=== PATIENT | male | born 2000 | race Caucasian/White ===

== ENCOUNTER 2024-03-14 10:40 | Emergency (ER) | payer SELFPAY ==
[2024-03-14 10:45] VITALS: BP 137/86
--- NOTE | 2024-03-14 11:05 | ED.GENMED ---
History of Present Illness
General
Chief Complaint: Male Genito-Urinary Symptoms
Source: patient
Exam Limitations: none
Time Seen by Provider: 03/14/24 10:52
Nursing documentation reviewed up to this point in time: agreed with
History of Present Illness
History of Present Illness:
ptis a 24 y/o M with no sig pmh
started 2 days ago having mild intermittent pain in the right upper groin near the superior scrotum
which has come and gone
says it was brief on the first day but he had a few episodes yesterday that were subtle and mild and he mostly felt well
and then this am wok up at 6 am to the pain
no scrotal swelling, rashes, lumps, penile discharge,urinay symptoms
no meds taken
no rectal pain
no h/o kidney stone
Past History
Past History
ED Past Medical History: Seizures and Psychiatric (ADHD)
ED Past Surgical History: None
Social History
Tobacco: Non-smoker
Review of Systems
Review of Systems
Allergies reviewed?: Yes
All Other Systems: Not applicable
Phy Exam
Physical Exam
Physical Exam:
GENERAL: Alert , in no apparent distress
EYE: pupils equal and reactive
NECK: Supple
ENT: o/p clr, mmm.
CARDIAC: Regular rate and rhythm .
LUNGS: Clear breath sounds bilaterally, no acute respiratory distress, no wheezes/rales/rhonchi
ABDOMEN: Soft, without focal tenderness, no r/g, no cvat, normal bowel sounds
: Right testicle lies lower than the left which is apparently his baseline, there is no edema of his scrotum, there is no epididymal tenderness, cremasterics normal on by both sides, right inguinal region nontender, no erythema of the scrotum, no
penile lesions,
NEUROLOGICAL: Alert and oriented, no focal neuro deficits
SKIN: Warm and dry, skin intact.
PSYCH: Normal and appropriate interaction.
Course
Orders/Labs/Results
Orders:
Orders
03/14/24 11:02
Urinalysis Reflex To Culture Urgent
Date Specimen was Collected: 03/14/24
Time Specimen was Collected: 10:54
Chlamydia/GC by PCR Urgent
JAELYN Source: Urine
Specimen Description:
Source:: URINE
Date Specimen was Collected: 03/14/24
Time Specimen was Collected: 10:54
03/14/24 11:09
Scrotum US [US Scrotum] Urgent
Comment:
Reason For Exam: right test pain; eval hernia,epidydmitis, torsion
03/14/24 12:21
CT Abd/pel Without Iv Or Oral Urgent
Comment:
Reason For Exam: eval right kidney stone; r testicular pain
Vital Signs
Initial and Last Documented VS:
Initial Vital Signs
Temp Pulse BP Pulse Ox
97.7 F 85 137/86 99
03/14/24 10:45 03/14/24 10:45 03/14/24 10:45 03/14/24 10:45
Last Documented Vital Signs
Temp Pulse Resp BP Pulse Ox
97.7 F 65 18 137/73 99
03/14/24 10:45 03/14/24 14:18 03/14/24 14:18 03/14/24 14:18 03/14/24 10:45
MDM/Problems Addressed
Differential Diagnosis Includes:
tsticular torsion, epididymitis, hernia, less likely kidney stone, less likely HILARIA, ifection
MDM/Problems Addressed:
24 y/o M
no pmh
intermittent pain in the R superior scrotum area that comes and goes
no trauma
no skin changes
no urinary changes
no sweling
on exam nontender, no masses
right testicle lie is lower than left which apparently is basline
no hrnia appreciated
no HILARIA
wll eval with urine and US
US neg
ct scan ne gfo rstone
scrotal support, tylenol; if wosre f/u with urology
*Critical Care Note
Total Time (30-74mins, 75-104mins- exclusive of procedures): Not Applicable
ED Attending Note
-
Portions of this chart may have been created with voice recognition software.� Occasional wrong word or��sound alike� substitutions may have occurred due to the inherent limitations of voice recognition software.
Discharge Plan
Departure
Patient Disposition: Home (Routine Discharge)
Date of Disposition: 03/14/24
Time of Disposition: 14:06
Patient with high blood pressure during this ER visit?: No
Condition: Fair
Covid-19: Not Applicable
Discharge Problem:
Groin pain
Instructions: Groin Strain (DC)
Prescriptions:
No Action
cyclobenzaprine 10 MG tablet
10 mg PO TIDPRN PRN (Reason: pain, spasm) Qty: 12 0RF
Referrals:
NONE,* [Family Provider] -
Thor Howe MD [Active] - Follow up in 5-7 days
Activity Restrictions/Additional Instructions:
Were not sure exactly the cause of your symptoms. your CAT scan did not show any cause for concern, your ultrasound showed normal blood flow to your testicles without any signs of infection or swelling that is concerning. Your urine was normal.
Please try Tylenol 2-3 times a day to see if this helps and then if you are still having symptoms you should be seen by either your family doctor or urologist.
Return for worsening symptoms like swelling, redness, urinary symptoms, trouble walking, fevers or chills etc.
It is recommended with testicular pain to try scrotal support or tight fitting underwear for couple of days to see if this helps.
Interventions
Interventions:
*Risk Screen - Suicide Last Done: 03/14/24 14:08
*General Assessment Last Done: 03/14/24 14:08
*Neglect/Abuse Screening Last Done: 03/14/24 14:08
ED- Fall Risk Assessment Last Done: 03/14/24 11:05
*Nursing Disposition Last Done: 03/14/24 14:18
ED-Male Genitourinary Assessment Last Done: 03/14/24 11:05
Discharge Date and Time
Discharge Date/Time: 03/14/24 14:19
Print Language: GREEK
[2024-03-14 12:06] LABS: Urine Albumin Negative (Neg - Trace); Urine Bilirubin Negative (Negative); Urine Character Clear (Clear); Urine Color Yellow; Urine Glucose Negative (Negative); Urine Ketone Negative (Negative); Urine Leukocyte Negative (Negative); Urine Nitrite Negative (Negative); Urine Occult Blood Negative (Negative); Urine Urobilinogen Negative (Neg - 1+)
[2024-03-14 13:58] VITALS: BP 137/73
[2024-03-14 14:18] VITALS: BP 137/73
== END 2024-03-14 14:19 | disposition home or self-care (01) ==
LOC: EMR 10:40
PROVIDERS: Physician Assistant; EMERGENCY PHYSICIAN Emergency Medicine
DX: R10.31 Right lower quadrant pain (principal); N50.811 Right testicular pain; F90.9 Attention-deficit hyperactivity disorder, unspecified type; R56.9 Unspecified convulsions; Z88.6 Allergy status to analgesic agent; Z91.048 Other nonmedicinal substance allergy status
CPT/HCPCS: 99284; 74176; 76870; 81003; 87491; 87591; 93976